=== PATIENT | female | born 1980 | race Caucasian/White ===

== ENCOUNTER 2024-12-08 00:27 | Day surgery (SDC) | payer OTHER, SELFPAY ==
[2024-11-28 15:18] VITALS: BMI 23.3
--- OUTSIDE RECORDS SUMMARY | 2024-12-08 00:32 | XMS_ITS | Data Portability ---
Author Organization [facility] Address [address] [place] [address] [place] [address] Assessment Encounter Date Assessment Date Assessment LastModified by Organization Details LastModified Time 01/13/2023 01/13/2023 Annual gynecological exam performed. Patient will come back in a year unless there are new symptoms. Not available 01/13/2023 11:51:02 10/02/2024 10/02/2024 Annual gynecological exam performed. Patient will come back in a year unless there are new symptoms. Not available 10/02/2024 11:45:32 Plan of Treatment Reminders Order Date Submit Date Provider Last Modified By Organization Details Last Modified Time Details Appointments None recorded. Lab culture, urine 2024 025 [facility] (Lab), [address], [place], [address], 5 07:39:26 urinalysis , dipstick 2024 025 [email or web address] [place], [facility] [address], [address], [place], [address], 5 12:17:20 hormone panel, serum or plasma 2024 025 [facility] (Lab), [address], [place], [address], 5 16:10:19 CBC w/ auto diff 2024 025 [facility] (Lab), [address], [place], [address], 5 16:10:18 CMP, serum or plasma 2024 025 [facility] (Lab), [address], [place], [address], 5 16:10:17 lipid panel, blood 2024 025 [facility] (Lab), [address], [place], [address], 5 16:10:17 TSH, serum or plasma 2024 025 [facility] (Lab), [address], [place], [address], 5 16:10:18 HbA1c (hemoglobi n A1c), blood 2024 025 [facility] (Lab), [address], [place], [address], 5 16:10:20 pap, IG + HR HPV - HPV regardless but if HPV is positive need subtyping 16,18/45 2024 025 [facility] (Lab), [address], [place], [address], 5 13:08:33 CMP, serum or plasma 2022 023 [facility] (Lab), [address], [place], [address], 3 03:15:45 lipid panel, blood 2022 023 [facility] (Lab), [address], [place], [address], 3 03:15:45 HbA1c (hemoglobi n A1c), blood 2022 023 [facility] (Lab), [address], [place], [address], 3 03:15:47 CBC w/ auto diff 2022 023 [facility] (Lab), [address], [place], [address], 3 03:15:46 TSH, serum or plasma 2022 023 [facility] (Lab), [address], [place], [address], 3 03:15:46 Referral None recorded. Procedures colonoscop y screening (PROC) 2024 025 [facility], [address], [address], [place], [address], 5 12:32:08 Surgeries None recorded. Imaging MAMMO, screening, digital, bilateral 2024 025 [facility], [address], [address], [place], [address], 5 04:04:05 MAMMO, screening, bilateral 2022 023 [email or web address] [facility], [address], [address], [place], [address], 3 16:36:35 Medication Orders nitrofuran toin monohydrat e/macrocry stals 100 mg capsule 2024 025 [facility] 2425, [address], [place], [address], 5 12:10:15 Diflucan 150 mg tablet 2022 023 [email or web address] [facility] 2425, [address], [place], [address], 11:52:50 nystatin-t evelinainolo ne 100,000 unit/gram- 0.1 % topical ointment 2022 023 [email or web address] [facility] 2425, [address], [place], [address], 11:52:55 Patient TargetsNo targets recorded. Patient InstructionsNo instructions recorded. Reason for Referral None Reported. Results Created Date Observation Date Name Description Value Unit Range Abnormal Flag Note LastModifiedBy Organization Detail LastModifiedTime 01/14/2001/13/2023 LIPID PANEL ,AMA (LDL- CALC) total cholesterol 191 mg/dL 0-[address] [facility] (Lab) [address], [place], [address], 01/14/2023 03:15:44 01/14/2001/13/2023 LIPID PANEL ,AMA (LDL- CALC) triglyceride s 85 mg/dL 0.00-1 50.00 NCEP Refer ence Value s for Trigl yceri radha: Mely l: <150 mg/dL Borde rline High: 150 - 199 mg/dL High: 200 - 499 mg/dL Very High: >/= 500 mg/dL Not Available [facility] (Lab) [address] [place], [address], 01/14/2023 03:15:44 01/14/2001/13/2023 LIPID PANEL ,AMA (LDL- CALC) HDL cholesterol 54 mg/dL >[address] [facility] (Lab) [address] [place], [address], 01/14/2023 03:15:44 01/14/2001/13/2023 LIPID PANEL ,AMA (LDL- CALC) LDL cholesterol 119 mg/dL 0-99 high Cutof f value s recom je d by the Natio nal Kathy stero l Educa tion Progr am: KEON ABLE: Kathy stero l <200 mg/dL LDL <100 mg/dL BORDE RLINE : Kathy stero l 200-2 39 mg/dL LDL 101-1 59 mg/dL HIGHE R RISK: Kathy stero l >240 mg/dL LDL >160 mg/dL , HDL <40 mg/dL Not Available [facility] (Lab) [address], [place], [address], 01/14/2023 03:15:44 01/14/2001/13/2023 LIPID PANEL ,AMA (LDL- CALC) non-HDL cholesterol 137 mg/dL no refere nce range A reaso nable goal for non-H DL kathy stero l is one that is 30 mg/dL highe r than the LDL kathy stero l goal. Not Available [facility] (Lab) [address], [place], [address], 01/14/2023 03:15:44 01/14/2001/13/2023 LIPID PANEL ,AMA (LDL- CALC) chol/HDL ratio 3.5 . 0.0-5. 0 On December 08, 2022, [facility] labor atori garo perez ed the equat ion for calcu latin g estim ated low-d ensit y lipop rotei n-cho leste rol (LDL- C) from the Fried manasa equat ion to the Rita sascha/Hop ebonie equat ion. This new equat ion is only valid for lipid panel s with trigl yceri radha < 400 mg/dL . Luisi es have demon strat ed that this new equat ion will impro ve the accur acy of LDL-C , espec ially in scena li when LDL-C gabriela ntrat ions are relat ively low (< 100 mg/dL ), trigl yceri radha are eleva griselda, or patie nt is non-f astin g. Refer ences : - Kennedy Galvez, Darryn Christianson , Marilin logan, Silvano Coles, Silvano moreno, [facility] , and Marin Marinelli . 2013. Comp ariso n of a Novel Metho d vs the Fried manasa Equat ion for Estim ating Low-D ensit y Lipop rotei n Kathy stero l Level s from the Stand zenon Lipid Jamarcus pham. WILDA: The Journ al of the Ameri can Medic al Assoc iatio n 310 (19): 2060- . - John enrique V, Alva J, Clyde enrique A, Gomez M, Radha e R, Flaca enrique E, Ronnie limon RS, Yves SR, Rita n SS. Fast ing Versu s Nonfa sting and Low-D ensit y Lipop rotei n Kathy stero l Accur acy. Circu latio n. 2017Aug 17;137 (1):1 0-19. Not Available [facility] (Lab) [address] [place], [address], 01/14/2023 03:15:44 01/14/20 23 01/13/2023 CMP(C OMPRE HENSI VE METAB OLIC PANEL ) sodium 139 mmol/ L 133-14 6 Not Available [facility] (Lab) [address] [place], [address], 01/14/2023 03:15:45 01/14/20 23 01/13/2023 CMP(C OMPRE HENSI VE METAB OLIC PANEL ) potassium 4.0 mmol/ L 3.5-5. 1 Not Available [facility] (Lab) [address] [place], [address], 01/14/2023 03:15:45 01/14/20 23 01/13/2023 CMP(C OMPRE HENSI VE METAB OLIC PANEL ) chloride 104 mmol/ L 98-107 Not Available [facility] (Lab) [address] [place], [address], 01/14/2023 03:15:45 01/14/20 23 01/13/2023 CMP(C OMPRE HENSI VE METAB OLIC PANEL ) carbon dioxide 27 mmol/ L 21-31 Not Available [facility] (Lab) [address] [place], [address], 01/14/2023 03:15:45 01/14/20 23 01/13/2023 CMP(C OMPRE HENSI VE METAB OLIC PANEL ) anion gap 8 mmol/ L 4-13 Not Available [facility] (Lab) [address], [place], [address], 01/14/2023 03:15:45 01/14/20 23 01/13/2023 CMP(C OMPRE HENSI VE METAB OLIC PANEL ) blood urea nitrogen 12 mg/dL 7-25 Not Available [facility] (Lab) [address], [place], [address], 01/14/2023 03:15:45 01/14/20 23 01/13/2023 CMP(C OMPRE HENSI VE METAB OLIC PANEL ) creatinine 0.99 mg/dL 0.60-1 .30 Not Available [facility] (Lab) [address], [place], [address], 01/14/2023 03:15:45 01/14/20 23 01/13/2023 CMP(C OMPRE HENSI VE METAB OLIC PANEL ) egfrcr (CKD-epi 2020) 73 mL/mi n/1.7 3_m2 >=60 Not Available [facility] (Lab) [address], [place], [address], 01/14/2023 03:15:45 01/14/20 23 01/13/2023 CMP(C OMPRE HENSI VE METAB OLIC PANEL ) calcium 9.0 mg/dL 8.3-10 .5 Not Available [facility] (Lab) [address], [place], [address], 01/14/2023 03:15:45 01/14/20 23 01/13/2023 CMP(C OMPRE HENSI VE METAB OLIC PANEL ) glucose 78 mg/dL 70-100 Not Available [facility] (Lab) [address], [place], [address], 01/14/2023 03:15:45 01/14/20 23 01/13/2023 CMP(C OMPRE HENSI VE METAB OLIC PANEL ) protein, total 6.8 g/dL 6.4-8. 3 Not Available [facility] (Lab) [address], [place], [address], 01/14/2023 03:15:45 01/14/20 23 01/13/2023 CMP(C OMPRE HENSI VE METAB OLIC PANEL ) albumin 4.1 g/dL 3.5-5. 0 Not Available [facility] (Lab) [address], [place], [address], 01/14/2023 03:15:45 01/14/20 23 01/13/2023 CMP(C OMPRE HENSI VE METAB OLIC PANEL ) ALT 12 units /L 9-43 Not Available [facility] (Lab) [address], [place], [address], 01/14/2023 03:15:45 01/14/20 23 01/13/2023 CMP(C OMPRE HENSI VE METAB OLIC PANEL ) alkaline phosphatase 55 units /L 34-104 Not Available [facility] (Lab) [address], [place], [address], 01/14/2023 03:15:45 01/14/20 23 01/13/2023 CMP(C OMPRE HENSI VE METAB OLIC PANEL ) AST 17 units /L 13-39 Not Available [facility] (Lab) [address], [place], [address], 01/14/2023 03:15:45 01/14/20 23 01/13/2023 CMP(C OMPRE HENSI VE METAB OLIC PANEL ) bilirubin, total 0.5 mg/dL 0.2-1. 2 Not Available [facility] (Lab) [address], [place], [address], 01/14/2023 03:15:45 01/14/20 23 01/13/2023 TSH, REFLE X FREE T4 TSH 1.91 uIU/m L 0.30-5 .33 Not Available [facility] (Lab) [address], [place], [address], 01/14/2023 03:15:46 01/14/20 23 01/13/2023 CBC W/DIF F WBC 7.5 10'3/ uL 3.6-10 .2 Not Available [facility] (Lab) [address], [place], [address], 01/14/2023 03:15:46 01/14/20 23 01/13/2023 CBC W/DIF F RBC 4.10 10'6/ uL (based on docume nted legal sex) 4.10-5 .30 Not Available [facility] (Lab) [address], [place], [address], 01/14/2023 03:15:46 01/14/20 23 01/13/2023 CBC W/DIF F HGB 13.3 g/dL (based on docume nted legal sex) 11.9-1 5.8 Not Available [facility] (Lab) [address], [place], [address], 01/14/2023 03:15:46 01/14/20 23 01/13/2023 CBC W/DIF F HCT 42.0 % (based on docume nted legal sex) 37.4-4 8.3 Not Available [facility] (Lab) [address], [place], [address], 01/14/2023 03:15:46 01/14/20 23 01/13/2023 CBC W/DIF F MCV 102.4 fL 82.0-9 9.0 high Not Available [facility] (Lab) [address], [place], [address], 01/14/2023 03:15:46 01/14/20 23 01/13/2023 CBC W/DIF F MCH 32.4 pg 27.0-3 3.0 Not Available [facility] (Lab) [address], [place], [address], 01/14/2023 03:15:46 01/14/20 23 01/13/2023 CBC W/DIF F MCHC 31.7 g/dL 32.0-3 6.0 low Not Available [facility] (Lab) [address], [place], [address], 01/14/2023 03:15:46 01/14/20 23 01/13/2023 CBC W/DIF F RDW 13.3 % 11.0-1 5.0 Not Available [facility] (Lab) [address], [place], [address], 01/14/2023 03:15:46 01/14/20 23 01/13/2023 CBC W/DIF F plt 258 10'3/ uL 150-45 0 Not Available [facility] (Lab) [address], [place], [address], 01/14/2023 03:15:46 01/14/20 23 01/13/2023 CBC W/DIF F MPV 11.1 fL 9.8-12 .7 Not Available [facility] (Lab) [address], [place], [address], 01/14/2023 03:15:46 01/14/20 23 01/13/2023 CBC W/DIF F NRBC's 0.0 % 0 Not Available [facility] (Lab) [address], [place], [address], 01/14/2023 03:15:46 01/14/20 23 01/13/2023 CBC W/DIF F absolute NRBCs 0.0 10'3/ uL 0 Not Available [facility] (Lab) [address], [place], [address], 01/14/2023 03:15:46 01/14/20 23 01/13/2023 CBC W/DIF F neutrophils 59.6 % 37.0-7 2.0 Not Available [facility] (Lab) [address], [place], [address], 01/14/2023 03:15:46 01/14/20 23 01/13/2023 CBC W/DIF F lymphocytes 27.7 % 16.0-4 8.0 Not Available [facility] (Lab) [address], [place], [address], 01/14/2023 03:15:46 01/14/20 23 01/13/2023 CBC W/DIF F monocytes 9.1 % 4.0-14 .0 Not Available [facility] (Lab) [address], [place], [address], 01/14/2023 03:15:46 01/14/20 23 01/13/2023 CBC W/DIF F eosinophils 2.5 % 0.0-9. 0 Not Available [facility] (Lab) [address], [place], [address], 01/14/2023 03:15:46 01/14/20 23 01/13/2023 CBC W/DIF F basophils 0.8 % 0.0-2. 0 Not Available [facility] (Lab) [address], [place], [address], 01/14/2023 03:15:46 01/14/20 23 01/13/2023 CBC W/DIF F immature granulocytes 0.3 % no define d refere nce range Not Available [facility] (Lab) [address], [place], [address], 01/14/2023 03:15:46 01/14/20 23 01/13/2023 CBC W/DIF F absolute neutrophils 4.5 10'3/ uL 1.1-6. 0 Not Available [facility] (Lab) [address], [place], [address], 01/14/2023 03:15:46 01/14/20 23 01/13/2023 CBC W/DIF F absolute lymphocytes 2.1 10'3/ uL 0.7-3. 4 Not Available [facility] (Lab) [address], [place], [address], 01/14/2023 03:15:46 01/14/20 23 01/13/2023 CBC W/DIF F absolute monocytes 0.7 10'3/ uL 0.3-1. 0 Not Available [facility] (Lab) [address], [place], [address], 01/14/2023 03:15:46 01/14/20 23 01/13/2023 CBC W/DIF F absolute eosinophils 0.2 10'3/ uL 0.0-0. 6 Not Available [facility] (Lab) [address], [place], [address], 01/14/2023 03:15:46 01/14/20 23 01/13/2023 CBC W/DIF F absolute basophils 0.1 10'3/ uL 0.0-0. 1 Not Available [facility] (Lab) [address], [place], [address], 01/14/2023 03:15:46 01/14/20 23 01/13/2023 CBC W/DIF F absolute immature granulocytes 0.0 10'3/ uL 0.00-0 .10 023 1:38 AM: P indic ates parti al resul ts on a panel have been relea sed. Addit ional resul ts will follo w. 023 1:38 AM: This resul t has been final verif ied. No addit ional or perez ed resul ts are expec griselda. Not Available [facility] (Lab) [address], [place], [address], 01/14/2023 03:15:46 01/14/20 23 01/13/2023 HEMOG LOBIN A1C hemoglobin A1C 5.1 % 0-5.6 The Ameri can Diabe paul Assoc iatio n recom mends that a prima ry goal of thera py shoul d be a HBA1C of < 7% and that physi cians shoul d reeva luate the treat ment regim en in patie nts with HBA1C value s consi stent ly > 8%. 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 Nicky davey kirstie d by Mona Hopper ret, CT on 023 at 2:29 PM ----- ----- ----- ----- ----- ----- ----- ----- ----- ----- ----- ----- ----- ----- ----- ----- ----- ---- HPV RESUL TS: HPV mRNA E6/E7 : No HPV mRNA Detec griselda NOTE: This high risk HPV mRNA assay detec ts fourt een high- risk HPV types (16, 18, 31, 33, 35, 39, 45, 51, 52, 56, 58, 59, 66, 68) witho ut diffe renti ation . COMME NT: This speci men was revie wed by a Cytot echno logis t and/o r Patho logis t (as indic ated in this repor t) after evalu ation using the Thinp rep Imagi ng Syste m. CLINI AMBER INFOR MATIO N: Menst rual Statu s: LMP (if appli cable ): Clini amber Histo ry/Pr eviou s Pap: Type of Neopl ray (if appli cable ): Signi fican t Clini amber Findi ngs: Other Histo ry: Hormo frank (if appli cable ): PAP EDUCA LIA L NOTE: The Pap Test is a scree wayne test with an inher ent false negat gabbi rate. Liqui d-bas ed sampl ing may decre ase, but will not elimi jair, false negat gabbi resul ts. A negat gabbi resul t does not precl ude the prese nce and/o r devel opmen t of disea se, since the prese nce of abnor mal cells in the sampl e depen ds on the locat ion of the lesio n and sampl ing techn ique. Shaheen nued regul ar scree wayne is the best metho d of cance r preve ntion . If repor griselda cytol ogic findi ng do not corre late with physi amber and/o r histo rical findi ngs, furth er inves tigat ion is recom je d, as clini magi warrannamaria nted. Not Available [facility] (Lab) [address], [place], [address], 01/15/2023 12:12:55 10/02/19 25 10/02/2024 CMP(C OMPRE HENSI VE METAB OLIC PANEL ) sodium 138 mmol/ L 133-14 6 Not Available [facility] (Lab) [address], [place], [address], 10/03/2024 16:10:16 10/02/19 25 10/02/2024 CMP(C OMPRE HENSI VE METAB OLIC PANEL ) potassium 4.4 mmol/ L 3.5-5. 1 Not Available [facility] (Lab) [address], [place], [address], 10/03/2024 16:10:16 10/02/19 25 10/02/2024 CMP(C OMPRE HENSI VE METAB OLIC PANEL ) chloride 104 mmol/ L 98-107 Not Available [facility] (Lab) [address], [place], [address], 10/03/2024 16:10:16 10/02/19 25 10/02/2024 CMP(C OMPRE HENSI VE METAB OLIC PANEL ) carbon dioxide 27 mmol/ L 21-31 Not Available [facility] (Lab) [address], [place], [address], 10/03/2024 16:10:16 10/02/19 25 10/02/2024 CMP(C OMPRE HENSI VE METAB OLIC PANEL ) anion gap 7 mmol/ L 4-13 Not Available [facility] (Lab) [address], [place], [address], 10/03/2024 16:10:16 10/02/19 25 10/02/2024 CMP(C OMPRE HENSI VE METAB OLIC PANEL ) blood urea nitrogen 12 mg/dL 7-25 Not Available [facility] (Lab) [address], [place], [address], 10/03/2024 16:10:16 10/02/19 25 10/02/2024 CMP(C OMPRE HENSI VE METAB OLIC PANEL ) creatinine 1.06 mg/dL 0.60-1 .30 Not Available [facility] (Lab) [address], [place], [address], 10/03/2024 16:10:16 10/02/19 25 10/02/2024 CMP(C OMPRE HENSI VE METAB OLIC PANEL ) egfrcr (CKD-epi 2020) 66 mL/mi n/1.7 3_m2 >=60 Not Available [facility] (Lab) [address], [place], [address], 10/03/2024 16:10:16 10/02/19 25 10/02/2024 CMP(C OMPRE HENSI VE METAB OLIC PANEL ) calcium 9.3 mg/dL 8.3-10 .5 Not Available [facility] (Lab) [address], [place], [address], 10/03/2024 16:10:16 10/02/19 25 10/02/2024 CMP(C OMPRE HENSI VE METAB OLIC PANEL ) glucose 83 mg/dL 70-100 Not Available [facility] (Lab) [address], [place], [address], 10/03/2024 16:10:16 10/02/19 25 10/02/2024 CMP(C OMPRE HENSI VE METAB OLIC PANEL ) protein, total 7.5 g/dL 6.4-8. 3 Not Available [facility] (Lab) [address], [place], [address], 10/03/2024 16:10:16 10/02/19 25 10/02/2024 CMP(C OMPRE HENSI VE METAB OLIC PANEL ) albumin 4.4 g/dL 3.5-5. 0 Not Available [facility] (Lab) [address], [place], [address], 10/03/2024 16:10:16 10/02/19 25 10/02/2024 CMP(C OMPRE HENSI VE METAB OLIC PANEL ) ALT 10 units /L 9-43 Not Available [facility] (Lab) [address], [place], [address], 10/03/2024 16:10:16 10/02/19 25 10/02/2024 CMP(C OMPRE HENSI VE METAB OLIC PANEL ) alkaline phosphatase 59 units /L 34-104 Not Available [facility] (Lab) [address], [place], [address], 10/03/2024 16:10:16 10/02/19 25 10/02/2024 CMP(C OMPRE HENSI VE METAB OLIC PANEL ) AST 14 units /L 13-39 Not Available [facility] (Lab) [address], [place], [address], 10/03/2024 16:10:16 10/02/19 25 10/02/2024 CMP(C OMPRE HENSI VE METAB OLIC PANEL ) bilirubin, total 0.7 mg/dL 0.2-1. 2 Not Available [facility] (Lab) [address], [place], [address], 10/03/2024 16:10:16 10/02/19 25 10/02/2024 LIPID PANEL ,AMA (LDL- CALC) total cholesterol 190 mg/dL 0-[address] [facility] (Lab) [address], [place], [address], 10/03/2024 16:10:17 10/02/19 25 10/02/2024 LIPID PANEL ,AMA (LDL- CALC) triglyceride s 80 mg/dL 0-150 NCEP Refer ence Value s for Trigl yceri radha: Mely l: <150 mg/dL Borde rline High: 150 - 199 mg/dL High: 200 - 499 mg/dL Very High: >/= 500 mg/dL Not Available [facility] (Lab) [address], [place], [address], 10/03/2024 16:10:17 10/02/19 25 10/02/2024 LIPID PANEL ,AMA (LDL- CALC) HDL cholesterol 57 mg/dL >[address] [facility] (Lab) [address] [place], [address], 10/03/2024 16:10:17 10/02/19 25 10/02/2024 LIPID PANEL ,AMA (LDL- CALC) LDL cholesterol 116 mg/dL 0-99 high Cutof f value s recom je d by the Natio nal Kathy stero l Educa tion Progr am: KEON ABLE: Kathy stero l <200 mg/dL LDL <100 mg/dL BORDE RLINE : Kathy stero l 200-2 39 mg/dL LDL 101-1 59 mg/dL HIGHE R RISK: Kathy stero l >240 mg/dL LDL >160 mg/dL , HDL <40 mg/dL Not Available [facility] (Lab) [address], [place], [address], 10/03/2024 16:10:17 10/02/1910/02/2024 LIPID PANEL ,AMA (LDL- CALC) non-HDL cholesterol 133 mg/dL no refere nce range A reaso nable goal for non-H DL kathy stero l is one that is 30 mg/dL highe r than the LDL kathy stero l goal. Not Available [facility] (Lab) [address], [place], [address], 10/03/2024 16:10:17 10/02/19 25 10/02/2024 LIPID PANEL ,AMA (LDL- CALC) chol/HDL ratio 3.3 . 0.0-5. 0 On December 08, 2022, [facility] labor atori garo perez ed the equat ion for calcu latin g estim ated low-d ensit y lipop rotei n-cho leste rol (LDL- C) from the Farzana hairald equat ion to the Rita caicedo/Alivia loomis equat ion. This new equat ion is only valid for lipid panel s with trigl yceri radha < 400 mg/dL . Studi es have demon strat ed that this new equat ion will impro ve the accur acy of LDL-C , espec ially in scena li when LDL-C gabriela ntrat ions are relat ively low (< 100 mg/dL ), trigl yceri radha are eleva griselda, or patie nt is non-f astin g. Refer ences : - Kennedy Galvez, Darryn Christianson , Marilin logan, Silvano Coles, Silvano moreno, Kevan limon , and Marin Marinelli . 2013. Comp ariso n of a Novel Metho d vs the Fried manasa Equat ion for Estim ating Low-D ensit y Lipop rotei n Kathy stero l Level s from the Stand zenon Lipid Profcherrie le. WILDA: The Journ al of the Ameri can Medic al Assoc iatio n 310 (19): 2060- . - John pickens ar V, Alva J, Clyde ar A, Gomez M, Radha e R, Flaca ar E, Ronnie limon RS, Yves SR, Rita caicedo SS. Fast ing Versu s Nonfa sting and Low-D ensit y Lipop rotei n Kathy stero l Accur acy. Circu latio n. 2017Aug 17;137 (1):1 0-19. Not Available [facility] (Lab) [address], [place], [address], 10/03/2024 16:10:17 10/02/19 25 10/02/2024 TSH, REFLE X FREE T4 TSH 2.69 uIU/m L 0.30-5 .33 Not Available [facility] (Lab) [address], [place], [address], 10/03/2024 16:10:18 10/02/19 25 10/02/2024 CBC W/DIF F WBC 6.7 10'3/ uL 3.5-10 .5 Not Available [facility] (Lab) [address], [place], [address], 10/03/2024 16:10:18 10/02/19 25 10/02/2024 CBC W/DIF F RBC 4.42 10'6/ uL (based on docume nted legal sex) 3.80-5 .20 Not Available [facility] (Lab) [address], [place], [address], 10/03/2024 16:10:18 10/02/19 25 10/02/2024 CBC W/DIF F HGB 14.2 g/dL (based on docume nted legal sex) 11.6-1 5.4 Not Available [facility] (Lab) [address], [place], [address], 10/03/2024 16:10:18 10/02/19 25 10/02/2024 CBC W/DIF F HCT 44.0 % (based on docume nted legal sex) 34.0-4 5.0 Not Available [facility] (Lab) [address], [place], [address], 10/03/2024 16:10:18 10/02/19 25 10/02/2024 CBC W/DIF F MCV 99.5 fL 80.0-9 9.0 high Not Available [facility] (Lab) [address], [place], [address], 10/03/2024 16:10:18 10/02/19 25 10/02/2024 CBC W/DIF F MCH 32.1 pg 27.0-3 4.0 Not Available [facility] (Lab) [address], [place], [address], 10/03/2024 16:10:18 10/02/19 25 10/02/2024 CBC W/DIF F MCHC 32.3 g/dL 32.0-3 5.5 Not Available [facility] (Lab) [address], [place], [address], 10/03/2024 16:10:18 10/02/19 25 10/02/2024 CBC W/DIF F RDW 12.1 % 11.0-1 5.0 Not Available [facility] (Lab) [address], [place], [address], 10/03/2024 16:10:18 10/02/19 25 10/02/2024 CBC W/DIF F plt 283 10'3/ uL 150-40 0 Not Available [facility] (Lab) [address], [place], [address], 10/03/2024 16:10:18 10/02/19 25 10/02/2024 CBC W/DIF F MPV 11.1 fL 8.8-12 .1 Not Available [facility] (Lab) [address], [place], [address], 10/03/2024 16:10:18 10/02/19 25 10/02/2024 CBC W/DIF F neutrophils 57.1 % 34.0-7 3.0 Not Available [facility] (Lab) [address], [place], [address], 10/03/2024 16:10:18 10/02/19 25 10/02/2024 CBC W/DIF F lymphocytes 28.6 % 15.0-5 0.0 Not Available [facility] (Lab) [address], [place], [address], 10/03/2024 16:10:18 10/02/19 25 10/02/2024 CBC W/DIF F monocytes 9.9 % 1.0-15 .0 Not Available [facility] (Lab) [address], [place], [address], 10/03/2024 16:10:18 10/02/19 25 10/02/2024 CBC W/DIF F eosinophils 3.3 % 0.0-8. 0 Not Available [facility] (Lab) [address], [place], [address], 10/03/2024 16:10:18 10/02/19 25 10/02/2024 CBC W/DIF F basophils 0.9 % 0.0-2. 0 Not Available [facility] (Lab) [address], [place], [address], 10/03/2024 16:10:18 10/02/19 25 10/02/2024 CBC W/DIF F immature granulocytes 0.2 % no define d refere nce range Immat ure Granu locyt es (IG) repre sents autom ated enume ratio n of Metam yeloc ytes, Myelo cytes and Promy elocy paul when IG is < 5%. Blast s are not inclu ded in IG and repor griselda separ ately if prese nt. Not Available [facility] (Lab) [address], [place], [address], 10/03/2024 16:10:18 10/02/19 25 10/02/2024 CBC W/DIF F absolute neutrophils 3.8 10'3/ uL 1.5-8. 0 Not Available [facility] (Lab) [address], [place], [address], 10/03/2024 16:10:18 10/02/19 25 10/02/2024 CBC W/DIF F absolute lymphocytes 1.9 10'3/ uL 1.0-4. 0 Not Available [facility] (Lab) [address], [place], [address], 10/03/2024 16:10:18 10/02/19 25 10/02/2024 CBC W/DIF F absolute monocytes 0.7 10'3/ uL 0.2-1. 0 Not Available [facility] (Lab) [address], [place], [address], 10/03/2024 16:10:18 10/02/19 25 10/02/2024 CBC W/DIF F absolute eosinophils 0.2 10'3/ uL 0.0-0. 6 Not Available [facility] (Lab) [address], [place], [address], 10/03/2024 16:10:18 10/02/19 25 10/02/2024 CBC W/DIF F absolute basophils 0.1 10'3/ uL 0.0-0. 3 Not Available [facility] (Lab) [address] [place], [address], 10/03/2024 16:10:18 02/17/10/02/2024 CBC W/DIF F absolute immature granulocytes 0.0 10'3/ uL 0.00-0 .10 Refer ence range s for nonbi nary/ inter sex or unspe cifie d gende r patie nts have not been estab lishe d. Pleas e refer to the follo wing table for range s estab lishe d for cisge nder patie nts and evalu ate in the clini amber riya xt of the indiv idual patie nt: https :[email or web address] ugalde book. nm.or g/gen derx Not Available [facility] (Lab) [address], [place], [address], 10/03/2024 16:10:18 10/02/19 25 10/02/2024 FSH, LH, ESTRA DIOL estradiol 89.6 pg/mL This assay was perfo rmed using [employer] ratio n reage nts and test kits. Value s obtai laverne with other assay metho ds or kits canno t be used inter [facility] . Femal e Estra diol Range s: Folli cular phase 12.4- 233 pg/mL Ovula tion phase 41.0- 398 pg/mL Lutea l phase 22.3- 341 pg/mL Postm enopa usal <5-13 8 pg/mL Healt hy Pregn ant Women 1st Trime ster 154-3 243 pg/mL 2nd Trime ster 1561- 82086 pg/mL 3rd Trime ster 8525- >3000 0 pg/mL Not Available [facility] (Lab) [address], [place], [address], 10/03/2024 16:10:19 10/02/19 25 10/02/2024 FSH, LH, ESTRA DIOL FSH 4.7 mIU/m L This assay was perfo rmed using [employer] n reage nts and test kits. Value s obtai laverne with other assay metho ds or kits canno t be used inter perez eably . Femal es Folli cular : 3.5-1 2.5 mIU/m L Ovula tion: 4.7-2 1.5 mIU/m L Lutea l: 1.7-7 .7 mIU/m L Postm enopa use: 25.8- 134.8 mIU/m L Not Available [facility] (Lab) [address] , [place], [address], 10/03/2024 16:10:19 10/02/19 25 10/02/2024 FSH, LH, ESTRA DIOL LH 1.5 mIU/m L This assay was perfo rmed using [employer] n reage nts and test kits. Value s obtai laverne with other assay metho ds or kits canno t be used inter perez eably . Femal es Mid-F ollic ular: 2.4-1 2.6 mIU/m L Mid-C ycle: 14.0- 95.6 mIU/m L Mid-L uteal : 1.0-1 1.4 mIU/m L Postm enopa use: 7.7-5 8.5 mIU/m L Not Available [facility] (Lab) [address], [place], [address], 10/03/2024 16:10:19 10/02/19 25 10/02/2024 HEMOG LOBIN A1C hemoglobin A1C 5.0 % 4.0-5. 6 The Ameri can Diabe paul Assoc iatio n recom mends that a prima ry goal of thera py kisha d be a HBA1C of < 7% and that physi cians shoul d reeva luate the treat ment regim en in patie nts with HBA1C value s consi stent ly > 8%. 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 Elect keshav thacker d by Cristin yin, CT on 2024 at 1203 [employer]HOU[employer] ----- ----- ----- ----- ----- ----- ----- ----- ----- ----- ----- ----- ----- ----- ----- ----- ----- ---- HPV RESUL TS: HPV mRNA E6/E7 : No HPV mRNA Detec griselda NOTE: This high risk HPV mRNA assay detec ts fourt een high- risk HPV types (16, 18, 31, 33, 35, 39, 45, 51, 52, 56, 58, 59, 66, 68) witho ut diffe renti ation . COMME NT: This speci men was revie wed by a Cytot echno logis t and/o r Patho logis t (as indic ated in this repor t) after evalu ation using the Thinp rep Imagi ng Syste m. CLINI AMBER INFOR MATIO N: Menst rual Statu s: LMP (if appli cable ): 2024 Clini amber Histo ry/Pr eviou s Pap: Type of Neopl ray (if appli cable ): Signi fican t Clini amber Findi ngs: Other Histo ry: Hormo frank (if appli cable ): PAP EDUCA LIA L NOTE: The Pap Test is a scree wayne test with an inher ent false negat gabbi rate. Liqui d-bas ed sampl ing may decre ase, but will not elimi jair, false negat gabbi resul ts. A negat gabbi resul t does not precl ude the prese nce and/o r devel opmen t of disea se, since the prese nce of abnor mal cells in the sampl e depen ds on the locat ion of the lesio n and sampl ing techn ique. Shaheen nued regul ar scree wayne is the best metho d of cance r preve ntion . If repor griselda cytol ogic findi ng do not corre late with physi amber and/o r histo rical findi ngs, furth er inves tigat ion is recom je d, as clini magi marrero nted. Not Available [facility] (Lab) [address], [place], [address], 10/04/2024 13:08:33 10/18/19 25 10/17/2024 CULTU RE: URINE result report SEE RESULT S BELOW Test: Cultu re: Urine Speci men Sourc e: Urine - Clean Catch Speci men Type: Urine Speci men Date: 1118 Resul t Date: 0633 Resul t Statu s: Final resul t Abnor mal: No Resul ting Lab: [facility] [address] [facility] [address] Tel: CULTU RE ----- ----- ----- --- No growt h in 1 day (dete ction level of 10,00 0 colon ies / ml.) Not Available [facility] (Lab) [address], [place], [address], 10/19/2024 07:39:26 10/18/19 25 10/17/2024 urina lysis , dipst ick Leukocytes ++ Not Available [facility] [address], [place], [address], 10/17/2024 12:06:54 10/18/19 25 10/17/2024 urina lysis , dipst ick Nitrite - Not Available [facility] [address], [place], [address], 10/17/2024 12:06:54 10/18/19 25 10/17/2024 urina lysis , dipst ick Urobilinogen - Not Available [facility] [address], [place], [address], 10/17/2024 12:06:54 10/18/19 25 10/17/2024 urina lysis , dipst ick Protein trace Not Available [facility] [address], [place], [address], 10/17/2024 12:06:54 10/18/19 25 10/17/2024 urina lysis , dipst ick pH 6 Not Available [facility] [address], [place], [address], 10/17/2024 12:06:54 10/18/19 25 10/17/2024 urina lysis , dipst ick Blood +++ Not Available [facility] [address], [place], [address], 10/17/2024 12:06:54 10/18/19 25 10/17/2024 urina lysis , dipst ick Specific [place] 1.000 [facility] Available [facility] [address], [place], [address], 10/17/2024 12:06:54 10/18/19 25 10/17/2024 urina lysis , dipst ick Ketone - Not Available [facility] [address], [place], [address], 10/17/2024 12:06:54 10/18/19 25 10/17/2024 urina lysis , dipst ick Bilirubin - Not Available [facility] [address], [place], [address], 10/17/2024 12:06:54 10/18/19 25 10/17/2024 urina lysis , dipst ick Glucose - Not Available [facility] [address], [place], [address], 10/17/2024 12:06:54 10/18/19 25 10/17/2024 urina lysis , dipst ick Appearance clear [facility] Available [facility] [address], [place], [address], 10/17/2024 12:06:54 10/18/1910/17/2024 urina lysis , dipst ick Color light yellow Not Available [facility] [address], [place], [address], 10/17/2024 12:06:54 Result Notes None recorded. Procedures Surgical History Date Name Laterality Status Provider Name and Address Organization Details Recorded Time 3 Date of Last Pap Smear completed Lauren Higginbotham [facility] 10/02/2024 11:44:49 2 Orthopedic Surgery completed Shae Gross [facility] 01/13/2023 11:54:15 Imaging Results None recorded. Procedure Notes None recorded. Medical Equipment None Reported. Allergies No known drug allergies Medications Name Sig Start Date Stop Date Status Note LastModified by Organization Details LastModified Time fluoxetine 40 mg capsule TAKE 1 CAPSULE BY MOUTH ONCE DAILY 01/13 completed Not Available Not Available Not Available fluconazole 150 mg tablet TAKE 1 TABLET ON DAYS 1, 4, AND 7 EVERY WEEK FOR 4 WEEKS 10/02 completed Not Available Not Available Not Available clonazepam 0.5 mg tablet TAKE 1 TABLET BY MOUTH ONCE DAILY NEEDED FOR ANXIETY 10/17 completed Not Available Not Available Not Available nystatin-tr iamcinolone 100,000 unit/gram-0 .1 % topical ointment APPLY OINTMENT TOPICALLY TO AFFECTED AREA TWICE DAILY NEEDED 10/02 completed Not Available Not Available Not Available oseltamivir 75 mg capsule TAKE 1 CAPSULE BY MOUTH TWICE A DAY FOR 5 DAYS 01/13 completed Not Available Not Available Not Available fluoxetine 10 mg capsule 01/13 completed Not Available Not Available Not Available fluoxetine 20 mg capsule TAKE 1 CAPSULE BY MOUTH ONCE DAILY 10/17 completed Not Available Not Available Not Available nitrofurant oin monohydrate /macrocryst als 100 mg capsule Take 1 capsule every 12 hours by oral route for 7 days. active Not Available Not Available No t Available Vitals Date Recorded Body height Body mass index (BMI) Body weight Systolic blood pressure Diastolic blood pressure Provider Name and Address Organization Details Last Updated DateTime 01/13/2023 160.02 cm 23 kg/m2 51678.01 g 107 mm[Hg] 69 mm[Hg] Shae Gross [facility] 3 11:51:33 Date Recorded Body height Body mass index (BMI) Body weight Systolic blood pressure Diastolic blood pressure Provider Name and Address Organization Details Last Updated DateTime 10/02/2024 160.02 cm 22.9 kg/m2 53723.85 g 106 mm[Hg] 72 mm[Hg] [facility] 5 11:52:45 Date Recorded Body height Body mass index (BMI) Body weight Systolic blood pressure Diastolic blood pressure Provider Name and Address Organization Details Last Updated DateTime 10/17/2024 160.02 cm 23.2 kg/m2 08043.32 g 101 mm[Hg] 70 mm[Hg] [facility] 5 11:58:48 Social History Question Answer Notes LastModified by Organizat ion Details LastModified Time Tobacco Smoking Status Never Smoker Shae Gross [facility] 01/13/2023 11:54:06 Do You Have An Advance Directive? No [email or web address] Information not available 10/02/2024 What Is Your Level Of Alcohol Consumption? Occasional Information not available 01/13/2023 How Many Years Have You Consumed Alcohol? 24 [email or web address] Information not available 10/02/2024 Are You Blind Or Do You Have Difficulty Seeing? No Information not available 01/13/2023 What Is Your Level Of Caffeine Consumption? Moderate Information not available 10/02/2024 How Much Tobacco Do You Chew? None Information not available 01/13/2023 In The 14 Days Before Symptom Onset, Have You Had Close Contact With A Laboratory-confir med COVID-19 While That Case Was Ill? No Information not available 01/13/2023 In The 14 Days Before Symptom Onset, Have You Had Close Contact With A Person Who Is Under Investigation For COVID-19 While That Person Was Ill? No Information not available 01/13/2023 Have You Been To An Area Known To Be High Risk For COVID-19? No Information not available 01/13/2023 Are You Deaf Or Do You Have Serious Difficulty Hearing? No Information not available 01/13/2023 What Type Of Diet Are You Following? REGULAR Information not available 01/13/2023 What Is The Highest Grade Or Level Of School You Have Completed Or The Highest Degree You Have Received? 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 No Information not available 01/13/2023 Do You Use Protection During Sex? No Information not available 01/13/2023 Do You Use Your Seat Belt Or Car Seat Routinely? Yes Information not available 01/13/2023 Do You Have Smoke And Carbon Monoxide Detectors In Your Home? Yes Information not available 01/13/2023 How Much Tobacco Do You Smoke? No Information not available 01/13/2023 Do You Feel Stressed (tense, Restless, Nervous, Or Anxious, Or Unable To Sleep At Night)? [id number] Information not available 01/13/2023 Do You Use Any Illicit Or Recreational Drugs? No Information not available 01/13/2023 Do You Use Sunscreen Routinely? Yes Information not available 01/13/2023 Have You Used IV Drugs? No Information not available 01/13/2023 Sex: Unknown Functional Status Question Answer Note LastModified by Organizat ion Details LastModified Time Are you able to walk? [email or web address] Information not available 01/13/2023 What is your exercise level? Occasional [email or web address] Information not available 10/02/2024 Mental Status None recorded. Family History Relationship Description Onset Age of this Age Resolved Age Notes LastModified by Organization Details LastModified Time Unspecified Relation Family history unknown Not available 2022 11:51:39 Medical History Condition Response Allergies (Food, seasonal, environmental ) N Other N Drug/Latex Allergies/Reactions N Breast Cancer N Blood Transfusion N Dermatologic Disorders N Lung Disease N Defects or Inherited Disease N Breast Problem N Gestational Diabetes N Hematologic disorders N Anesthesia Complications N History of STI N Deep Vein Thrombosis N Polycystic ovary syndrome N Anxiety Disorder N Autoimmune disease N Arthritis N Infertility N Polyps N Acid Reflux (GERD) N History of abnormal pap N Cancer N Stroke N Varicosities N Neurologic/Epilepsy N Endometriosis N High Cholesterol N Fibromyalgia N Headaches N Kidney Disease N Heart Problems N Thyroid Problems N Kidney or Bladder Problems N GI Problems N Eating Disorder N Anemia N Art (IVF or FET) N Psychiatric Illness N Ovarian Cancer N Diabetes N Pulmonary (TB, Asthma) N Hepatitis/Liver Disease N No Past Medical History Y Eczema N Urinary Tract Infection N Abuse/Domestic Violence N Asthma N Trauma/Violence N Depression/ depression N Heart Disease N Pre-Eclampsia N Hypertension N Osteoporosis N Thrombophilias N Gynecological History Statement/Question Response Abnormal Pap N Flow Moderate Date of LMP 10/10/2024 On BCP's at Conception? N N Was last menstrual period normal Y STIs/STDs N HPV Vaccine N Duration of Flow (days) 5 Current Control Method None Age at First Child 16 Are cycles usually normal Y Frequency of Cycle (Q days) 30 Sexually Active? Y Menses Monthly Y Age of first menstrual cycle 9 Date of Last Pap Smear 01/13/2023 Sexual Problems? N Desired Control Method Ablation LMP Definite N Obstetrics History GPAL:G 2 P 2 0 0 2 Type Value Full Term 2 Living 2 Total 2 Past Encounters Encounter ID Performer Location Encounter Start Date Encounter Closed Date Diagnosis/Indication Diagnosis SNOMED-CT Code Diagnosis ICD10 Code Diagnosis Note [id number] Viky Moreno , [facility] [address] [address] 01/13/2023 11:42:20 01/13/2023 16:36:35 Gynecologic examination 12557549 Z01.419 Suggested Calcium with Vitamin D 1200-1500m g daily. Patient advised to get an annual flu shot in the fall and she could obtain at [facility] or [facility] care clinic. Also to obtain TDap vaccinatio n if you have not had one in the last 10 years. Recommend yearly mammograms . Encouraged monthly self breast exams. Encourage safe sexual practices, to use condoms and limit partners if not already in a monogamous relationsh ip. Engage in daily exercise of low impact aerobic exercise 45-60 minutes 4-5 times weekly. Avoid tobacco and illicit drugs as well as using moderation with alcohol intake less than 1-2 8 oz beverages daily. This lifestyle behavior pattern will lead to less health conditions and longer life span. If BMI greater than 25 weight watchers or dietary consult advised. All questions have been answered. Patient appears to understand informatio n, but if you have any questions please call or respond to this email.Pap/ hpv sentSTD Screen declinedGe netic Screen discussedC olon Screen naDexa Screen naRoutine Labs ordered. Will refer to PCP if any abn's that need to be addressed on routine blood wrk. Adult heal th examination [id number] Z00.00 Screening mammography 24 144751 Z12.31 Vaginitis 23325518 N76.0 Today we decided to do an extended course of diflucan and VCG's.If still having issues return to office. Counseled on medication R/B's, Most common side effects, & use. All questions were answered to patient satisfacti on. Contracept ion care management [id number] Z30.9 Discussed all control options and pt would like to consider Paraguard IUD. I have discussed in detail all risks and benefits including risk of infection and perforatio n. She understand s she will need to contact office with next menses for placement. Aware of need to verify with insurance device coverage. Literature given. All questions answered to patient satisfacti on.She would also like to consider tubal ligation. Understand s this option would require an MD consult. [id number] MEGAN JONES NP [facility] [address],[facility] [place] [address] 10/02/2024 11:38:55 10/02/2024 12:18:50 Gynecologic examination [id number] Z01.419 Annual gynecologi amber exam performed. Patient will come back in a year unless there are new symptoms. Suggest Calcium with Vitamin D if not eating in diet. Patient advised to get annual flu shot. Recommend yearly physicals and perform monthly breast exams. Genetic testing is available for patients with family history of cancer. Engage in safe sexual practices, use condoms. Encouraged to have daily exercise. Avoid tobacco and illicit drugs, moderation of alcohol. If BMI greater than 25 dietary consult advised. If you have any questions please call or email. mammogram- DUE; order given, pt to schedule colon cancer screening - DUE; GI referral for colonoscop y DEXA scan- n/a Pap smear- pap w/ HPV collected laboratory evaluation - requested STI testing - declined Recommende d consistent condom use to prevent . Discussed other methods of control - pt declined. Pt does not have PCP - PCP list given Screening mammography 24 624426 Z12.31 Menopausal symptom 91677 002 N95.1 Reviewed self-help strategies (dietary changes/ex ercise/acc upuncture/ etc.), herbal and other OTC therapies, hormonal options as well as other medication s used to treat common menopausal symptoms. Discussed hormonal vs non-hormon al methods to treat vasomotor symptoms. Pt declined at this time.Will check labs. Screening for malignant neoplasm of colon [id number] Z12.11 [id number] MEGAN JONES NP [facility] [address] [address] 10/17/2024 11:40:40 10/17/2024 12:24:17 Urinary symptoms 304255896 R39.9 Patient presents with symptoms of UTI. Results of dipstick were positive for +++ blood, ++ leukocytes , and trace protein.Ur ine culture sent.Advis ed to drink clear fluids, Tylenol for pain and take prescribed medication s as instructed .Patient encouraged to follow up within 1 week if not improving. Health Concerns Section Related Observation LastModified by Organization Detai ls LastModified Time None Recorded Concern Status LastModified by Organization Details LastModified Time None Recorded Advance Directives Directive N: Payers Encounter Date Sequence Insurance Name Policy Number Policy Kang Covered Member ID Kang Member ID Guarantor Name 01/13/2023 1 [employer]: (PPO) [id number] Samantha December [id number] Samantha 10/02/2024 1 [facility] [id number] Samantha December [id number] Samantha 10/17/2024 [facility] [id number] Samantha December [id number] Samantha December Notes Date Note Type Note Provider Name and Address Organization Details Recorded Time 01/13/2023 text/html Annual GYNReport ed bypatient.Menstrual cycle:Normal menses Urinary symptoms:No hematuria; No incontinence Vulva:No genital lesion Vagina:White;Vagina l itching(Feels she has had a low lying yeast infection that otc products have not fully resolved from previously being treated with multiple abx for walking pnuemonia from covid and ear infections.) Breast:No breast pain; No breast lump; No nipple discharge Current Contraception:Satis fied with current contraception (Wants to discuss non-hormonal BC options.); Condoms Sexual complaints:No sexual complaints; No pain during intercourse; Normal libido Menopausal Symptoms:No menopausal symptoms; Normal vaginal lubrication Psychological symptoms:No depression; No anxiety; No PMDD Preventive measures:Encourage self breast examination; Encourage regular exercise; Encourage no tobacco use; Encourage regular mammograms starting age 40; Followed with yearly pap smears; Needs to schedule mammogram Viky Moreno, MCKENZIE- [address], [place], [address], [facility] 01/13/2023 16:16:14 10/02/2024 text/html Annual GYNReport ed bypatient.Menstrual cycle:Irregular cycle intervals;Perimenop ausal Urinary symptoms:No hematuria; No incontinence Vulva:No genital lesion Vagina:Normal vaginal discharge Breast:No breast pain; No breast lump; No nipple discharge Current Contraception:Condo ms Sexual complaints:No sexual complaints; No pain during intercourse; Normal libido Menopausal Symptoms:No menopausal symptoms; Normal vaginal lubrication Psychological symptoms:No depression; No anxiety; No PMDD Preventive measures:Encourage self breast examination; Encourage regular exercise; Encourage no tobacco use; Encourage regular mammograms starting age 40 Patient presents for annual well woman exam. Patient reports occasional night sweats and states that her periods have become slightly more irregular, q35-45 days. Requests annual blood work and hormone labs. MEGAN JONES NP [address], [place], [address], [facility] 10/02/2024 12:18:10 10/17/2024 text/html Patient here wit h c/o urethral pressure, pelvic discomfort, dark urine, urinary frequency, urine odor, hesitancy, and blood in urine x 2 days.Neg flank pain, fever.Neg GI symptoms. MEGAN JONES NP [address], [place], [address], [facility] 10/17/2024 12:18:42 OBGyn Episode Ob Episode Information Episode Created Date Number of Fetuses Patient Bloodtype Patient rh Status Prepregnancy Weight lbs Domestic Partner Domestic Partner Phone Father Name Paper Machine Tender Status 01/14/20 23 1 CLOSED Fetus Data First Name Last Name Admitted to NICU Weight (g) Sex Living Outcome Pediatric Complications Fetus ID Race Codes Race Delivery Type M Full Term Vaginal Delivery Jose Manuel Calculation Initial Jose Manuel Date Initial Exam Date Initial Exam Provider Initial Ultrasound Date Last Menstrual Period Date Ultra Sound Weeks Gestation 0 Eighteen To Twenty Week Jose Manuel Update Ultra Sound Date Fundal Height At Umbil Quickening Date Ultra Sound Latest Weeks Gestation Final Jose Manuel Confirmed By Final Jose Manuel Confirmed Date Final Jose Manuel Date Ultra Sound Latest Days Gestation 0 0 Menstrual History Last Menstrual Date Menses Monthly On Bcp Conception Prior Menses Frequency Hcg Plus Date Menarche Onset Age Delivery Information Delivery Date Delivery Type Labor Anesthesia Weeks Gestation Incision Type Labor Labor Length Hrs Delivered By Post Complications Tubal Sterilization Discharge Date Comments 7 40 Robert Discharge Information Feeding Method Contraceptive Method Maternal HG B and HCT Levels Ob Episode Information Episode Created Date Number of Fetuses Patient Bloodtype Patient rh Status Prepregnancy Weight lbs Domestic Partner Domestic Partner Phone Father Name Paper Machine Tender Status 01/14/20 23 1 CLOSED Fetus Data First Name Last Name Admitted to NICU Weight (g) Sex Living Outcome Pediatric Complications Fetus ID Race Codes Race Delivery Type F Full Term Vaginal Delivery Jose Manuel Calculation Initial Jose Manuel Date Initial Exam Date Initial Exam Provider Initial Ultrasound Date Last Menstrual Period Date Ultra Sound Weeks Gestation 0 Eighteen To Twenty Week Jose Manuel Update Ultra Sound Date Fundal Height At Umbil Quickening Date Ultra Sound Latest Weeks Gestation Final Jose Manuel Confirmed By Final Jose Manuel Confirmed Date Final Jose Manuel Date Ultra Sound Latest Days Gestation 0 0 Menstrual History Last Menstrual Date Menses Monthly On Bcp Conception Prior Menses Frequency Hcg Plus Date Menarche Onset Age Delivery Information Delivery Date Delivery Type Labor Anesthesia Weeks Gestation Incision Type Labor Labor Length Hrs Delivered By Post Complications Tubal Sterilization Discharge Date Comments 1 40 Hong Discharge Information Feeding Method Contraceptive Method Maternal HG B and HCT Levels
--- OUTSIDE RECORDS SUMMARY | 2024-12-08 00:33 | XMS_ITS | Referral Summary ---
Author Organization [facility] Medical Office Building 1 Address [address] [place] [address] Care Team Providers Care User Experience Lead Name Role Phone Denton Leonardo MD Primary Care Provider Encounters Date Type Department Care Team Description 10/13/2024 1:30 PM LABORER CARPENTRY DOCK - 10/13/2024 11:59 PM LABORER CARPENTRY DOCK Hospital Encounter [address] [place] [address] Right foot pain Discharge Disposition: Discharge to home or self care 10/13/2024 1:30 PM LABORER CARPENTRY DOCK Office Visit [facility] Orthopaedic Surgery [address] [place] [address] Medical Office Building 1 [address] [place] [address] Gasper Victoria, MCKENZIE Right foot pain (Primary Dx); Left foot pain from Last 3 Months Allergies No known active allergies Medications No known medications Active Problems No known active problems Social History Tobacco Use Types Packs/Day Years Used Date Smoking Tobacco: Unknown Tobacco Cessation:Counseling Given: Not Answered Comments Unknown Sex and Gender Information Value Date Recorded Sex Assigned at Not on file Legal Sex Female 6:30 PM LABORER CARPENTRY DOCK Gender Identity Not on file Sexual Orientation Not on file Plan of Treatment Not on file Procedures Procedure Name Priority Date/Time Associated Diagnosis Comments XR FOOT RIGHT 3 OR MORE VIEWS Schedule Routine, Read Routine (OP Routine) 10/13/2024 1:36 PM LABORER CARPENTRY DOCK Right foot pain from Last 3 Months Results * XR Foot Right 3 or More Views (10/13/2024 1:36 PM LABORER CARPENTRY DOCK) Anatomical Region Laterality Modality Lower Extremities, Foot Right Digital Radiography 10/14/2024 9:01 AM LABORER CARPENTRY DOCK Impressions 10/14/2024 9:01 AM LABORER CARPENTRY DOCK 1. Small bony density adjacent to the lateral/plantar cuboid, favored to represent an os perineum, with small avulsion injury not excluded. Correlate clinically. This report was created using voice recognition software. Occasional wrong-word or sound-alike substitutions may have occurred due to the inherent limitations of voice recognition software. Read the above report carefully and recognize, using context, where substitutions may have occurred. Electronically signed by: Muna Segovia M.D. Narrative 10/14/2024 9:01 AM LABORER CARPENTRY DOCK EXAMINATION: XR FOOT RIGHT 3 OR MORE VIEWS DATE: 10/13/2024 1:45 PM HISTORY: right foot pain - WB. COMPARISON: None. FINDINGS: Small, roughly wedge-shaped ossific density adjacent to the lateral cuboid tarsal on the oblique view, probably an os peroneum, but cortication not well assessed so small avulsion not excluded; correlation for recent injury or pain in this area is recommended. Mild hallux valgus with bony bunion. Bony alignment otherwise normal. Joint spaces are well preserved. No erosions. No focal soft tissue swelling. Procedure Note Muna Segovia MD - 10/14/2024 EXAMINATION: XR FOOT RIGHT 3 OR MORE VIEWS DATE: 10/13/2024 1:45 PM HISTORY: right foot pain - WB. COMPARISON: None. FINDINGS: Small, roughly wedge-shaped ossific density adjacent to the lateral cuboid tarsal on the oblique view, probably an os peroneum, but cortication not well assessed so small avulsion not excluded; correlation for recent injury or pain in this area is recommended. Mild hallux valgus with bony bunion. Bony alignment otherwise normal. Joint spaces are well preserved. No erosions. No focal soft tissue swelling. IMPRESSION: 1. Small bony density adjacent to the lateral/plantar cuboid, favored to represent an os perineum, with small avulsion injury not excluded. Correlate clinically. This report was created using voice recognition software. Occasional wrong-word or sound-alike substitutions may have occurred due to the inherent limitations of voice recognition software. Read the above report carefully and recognize, using context, where substitutions may have occurred. Electronically signed by: Muna Segovia M.D. Gasper Victoria SENIOR INVESTMENT ANALYST IMG XR PROCEDURES Final Re sult from Last 3 Months Insurance NEXUS NEXUS Care Teams User Experience Lead Relationship Specialty Start Date End Date Denton Leonardo MD [address] [place] [id number] PCP - General Surgery 11/07/21
--- OUTSIDE RECORDS SUMMARY | 2024-12-08 00:33 | XMS_ITS | Data Portability ---
Author Organization [facility] Address [address] [place] [address] Assessment No assessment recorded. Plan of Treatment Reminders Order Date Submit Date Provider Last Modified By Organization Details Last Modified Time Details Appointments None record ed. Lab None record ed. Referral None record ed. Procedures None record ed. Surgeries None record ed. Imaging None record ed. Medication Orders None record ed. Patient TargetsNo targets recorded. Patient InstructionsNo instructions recorded. Reason for Referral None Reported. Problems No Known Problems Procedures Surgical History Date Name Laterality Status Provider Name and Address Organization Details Recorded Time 04/06/20 17 97734- Corticosteroid injection for Neuroma completed Margaret [facility] 04/06/2017 11:54:59 04/06/20 17 66673 X-rays 3v Feet Normal completed Margaret [facility] 04/06/2017 11:54:45 Other completed Asha Queen [facility] 04/06/2017 11:42:39 Imaging Results None recorded. Procedure Notes None recorded. Medical Equipment None Reported. Allergies Allergen ID Allergen Name Allergen Category Reaction Reaction Severity Criticality Documentation Date Start Date Code Code System Note Provider Name and Address Organization Details Recorded Time 56875 adhesive tape environme nt,medica tion Not available Not available Not available 04/06/2017 39529 UNK Not Available Not Available Not Available 27185 morphine medicatio n Not available Not available Not available 04/06/2017 7052 RxNorm Not Available Not Available Not Available Medications Not known to be on any medication Vitals Date Recorded Body height Body mass index (BMI) Body weight Provider Name and Address Organization Details Last Updated DateTime 04/06/2017 157.48 cm 22.7 kg/m2 85834.45 g Asha Queen [place] [facility] 04/06/2017 11:39:55 Social History Question Answer Notes LastModified by Organizat ion Details LastModified Time Tobacco Smoking Status Former Smoker Asha Queen null, [place] - [facility] 04/06/2017 11:40:37 What Is Your Level Of Alcohol Consumption? Occasional Information not available 04/06/2017 Quit Smoking How Many Years Ago? 7 Information not available 04/06/2017 Before Quit, How Many Ppd? .20 Information not available 04/06/2017 Size Of Shoes 6.5 Information not available 04/06/2017 What Was The Date Of Your Most Recent Tobacco Screening? 04/06/2017 Information not available 03/08/2019 Sex: Unknown Functional Status Question Answer Note LastModified by Organization D etails LastModified Time What is your exercise level? Heavy Information not available 04/06/2017 Mental Status None recorded. Family History Relationship Description Onset Age of this Age Resolved Age Notes LastModified by Organization Details LastModified Time Father No current problems or disability Not available 04/06 11:40:28 Mother No current problems or disability Not available 04/06 11:40:28 Medical History Condition Response Tuberculosis or TB N Heart Problems N Ulcers on Legs or Feet N HIV or AIDS N Coronary Artery Disease N Gout N Seizure Disorder N High Blood Pressure N Clot in Lung or Pulmonary Embolism N Menopause N Lung Condition N Phlebitis or Venous Blood Clot N Migraines N Depression N Pacemaker N Anemia N Back Pain N Neurologic Disease N Sciatica N Heart Attack (IA) N Urinary Tract Infections N Anxiety Disorder N Diabetes N Bleeding Disorder N Arthritis N Abuse of Alcohol or Drugs N Back injury N Ear Problems N Cancer N Eye Problems N Stroke N Dementia N Stomach Problems N Peripheral Vascular Disease N Sinus Conditions N High Cholesterol N Thyroid Disorder N Broken Bone N Hepatitis N Liver Disease N Heart Disease N Rheumatoid Arthritis N Rash N Osteoporosis N Kidney Disease N Gynecological HistoryNo gynecological history recorded. 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 Radiograph s were reviewed and discussed with the patient. The painful foot condition of a neuroma, a pinched nerve between the metatarsal s, was discussed with the patient. The patient was given conservati ve, medical and surgical treatment options.Of fered patient diagnostic cortisone injection. Patient agreed and provided verbal consent.Al l of {{his her* }} questions were answered. Patient is to call if she has increased pain. Patient to RTC in 1 month. Pain in right foot [id number] 03660 M79.671 Health Concerns Section Related Observation LastModified by Organization Detai ls LastModified Time None Recorded Concern Status LastModified by Organization Details LastModified Time None Recorded Advance Directives Directive None Recorded Payers Encounter Date Sequence Insurance Name Policy Number Policy Kang Covered Member ID Kang Member ID Guarantor Name 04/06/2017 1 [facility] [id number] Samantha December [id number] Samantha December Notes Date Note Type Note Provider Name and Address Organization Details Recorded Time 7 text/html Foot Pain--Reported bypatient.Location:right ball of the foot at Metatarsophalangeal Joint Quality:aching; occurs: constantly; worsening Severity:moderate Duration:2 weeks Timing:all day long Alleviating Factors:ice; elevation Aggravating Factors:walking; weightbearing; pressure Associated Symptoms:denies weakness, limping, tingling, swelling, or color changes; bruising Previous Surgery:none Prior Imaging:none Previous Treatments:noneNotes:nika oneill denies any trauma to the area SAMMY Talbot [facility] 04/06/2017 11:57:43 OBGyn Episode No OBEpisode recorded.
--- OUTSIDE RECORDS SUMMARY | 2024-12-08 00:33 | XMS_ITS | Clinical Summary ---
Author Organization [facility] Medical Office Building 1 Address [address] [place] [address] Care Team Providers Care Hospital Coordinator Name Role Phone Denton Leonardo MD Primary Care Provider [phone] Allergies No known active allergies Medications No known medications Active Problems No known active problems Encounters Date Type Department Care Team Description 10/13/2024 1:30 PM TRANSPORTATION DESIGN ENGINEER - 10/13/2024 11:59 PM TRANSPORTATION DESIGN ENGINEER Hospital Encounter [address] [place] [address] Right foot pain Discharge Disposition: Discharge to home or self care 10/13/2024 1:30 PM TRANSPORTATION DESIGN ENGINEER Office Visit [facility] Orthopaedic Surgery [address] [place], [place] [address]y Medical Office Building 1 [address] [place] [address] Gasper Victoria NP Right foot pain (Primary Dx); Left foot pain from Last 3 Months Social History Tobacco Use Types Packs/Day Years Used Date Smoking Tobacco: Unknown Tobacco Cessation:Counseling Given: Not Answered Comments Unknown Sex and Gender Information Value Date Recorded Sex Assigned at Not on file Legal Sex Female 6:30 PM TRANSPORTATION DESIGN ENGINEER Gender Identity Not on file Sexual Orientation Not on file Obstetrics History Plan of Treatment Health Maintenance Due Date Last Done Comments Breast Cancer Screening-Mammogram 1979 Cervical Cancer Screening 1979 Colon Cancer Screening-Colonoscopy 1979 Depression Screening 1979 Hepatitis C Screening 1979 Hepatitis B Screening 1997 Regular Well Visit/Exam 18-64 1997 Covid-19 Vaccine (2023-2 5 season) 2024 12/22/2020, 11/09/2020 Influenza Vaccine (#1) 2024 DTaP/Tdap/Td Vaccine (2 - Td or Tdap) 10/15/2031 10/14/2021 HPV Vaccines Aged Out No longer eligi ble based on patient's age to complete this topic Pneumococcal vaccine <65 Aged Out No longer eligible based on patient's age to complete this topic Procedures Procedure Name Priority Date/Time Associated Diagnosis Comments XR FOOT RIGHT 3 OR MORE VIEWS Schedule Routine, Read Routine (OP Routine) 10/13/2024 1:36 PM TRANSPORTATION DESIGN ENGINEER Right foot pain from Last 3 Months Results * XR Foot Right 3 or More Views (10/13/2024 1:36 PM TRANSPORTATION DESIGN ENGINEER) Anatomical Region Laterality Modality Lower Extremities, Foot Right Digital Radiography 10/14/2024 9:01 AM TRANSPORTATION DESIGN ENGINEER Impressions 10/14/2024 9:01 AM TRANSPORTATION DESIGN ENGINEER 1. Small bony density adjacent to the [...] Muna Segovia M.D. Narrative 10/14/2024 9:01 AM TRANSPORTATION DESIGN ENGINEER EXAMINATION: XR FOOT RIGHT 3 OR MORE [...] signed by: Muna Segovia M.D. Gasper Victoria FISH FARM LABORER IMG XR PROCEDURES Final Re sult from Last 3 Months Insurance NEXUS NEXUS Care Teams Hospital Coordinator Relationship Specialty Start Date End Date Denton Leonardo MD [address] [place] [id number] PCP - General Surgery 11/07/21
--- OUTSIDE RECORDS SUMMARY | 2024-12-08 00:33 | XMS_ITS | Clinical Summary ---
Author Organization [facility] Address [address] [place] [address] Care Team Providers Care Award Machine Operator Name Role Phone Meri Cummings MD Primary Care Provider Unavailab le Social History Tobacco Use Types Packs/Day Years Used Date Smoking Tobacco: Never Assessed Comments Unknown Sex and Gender Information Value Date Recorded Sex Assigned at Not on file Legal Sex Female 7:19 PM CDT Gender Identity Not on file Sexual Orientation Not on file Last Filed Vital Signs Vital Sign Reading Time Taken Comments Blood Pressure 95/63 01/11/2014 3:39 PM CDT Pulse 68 01/11/2014 3:39 PM CDT Temperature - - Respiratory Rate - - Oxygen Saturation - - Inhaled Oxygen Concentration - - Weight 57.2 kg (126 lb) 01/11/2014 3:39 PM CDT Height 165.1 cm (5' 5 ) 01/11/2014 3:39 PM CDT Body Mass Index 20.97 01/11/2014 3:39 PM CDT Plan of Treatment Health Maintenance Due Date Last Done Comments Cervical Cancer Screening Pa p Smear (Age 30 to 64) Every 3 Years 1979 Colorectal Cancer Screening Colonoscopy (10 Years) 1979 Annual Physical 1982 Hepatitis C 1997 Hepatitis B Vaccines (1 of 3 - 19+ 3-dose series) 1998 Cervical Cancer Screening Pa p with HPV Testing (Age 30 to 64) Every 5 Years 2009 Cervical Cancer Screening with HPV 2009 DTaP, Tdap and Td Vaccines ( 1 - Tdap) 07/17/2010 07/16/2010 Mammogram Screening 2019 COVID-19 Vaccine (2023-2 5 season) 2024 HPV Vaccines Aged Out No longer eligi ble based on patient's age to complete this topic Meningococcal B Vaccine Aged Out No l onger eligible based on patient's age to complete this topic Meningococcal Vaccine Aged Out No mounika marta eligible based on patient's age to complete this topic Pneumococcal Vaccine: Pediat rics (0 to 5 Years) and At-Risk Patients (6 to 49 Years) Aged Out No longer eligi ble based on patient's age to complete this topic RSV Immunizations Under 20 Months Aged Out No longer eligible based on patient's age to complete this topic Care Teams Award Machine Operator Relationship Specialty Start Date End Date Meri Cummings MD PCP - General 06/13/12
[2024-12-08 11:15] VITALS: BP 97/75; PULSE 80; RESP 16; TEMP 36.4; O2SAT 100; BMI 23.4
[2024-12-08] MEDS: LACTATED RINGERS 1,000 ML 150 ML IV CONT (11:31)
--- NOTE | 2024-12-08 11:37 | P.PNAN_ITS ---
Anes - Initial Pre Proc Eval Procedure: Operation Date: 12/08/24 12:30 Proposed Procedures p Screening Colonoscopy - Brady Ro MD Date/Time: 12/08/24 11:37 Surgeon: Brady Ro MD Pre Op Diagnosis: Screening Patient Data Age: 44 Gender: F Height: 1.57 m Weight: 58.2 kg Last Vital Signs Temp 97.6 F 12/08/24 11:15 Pulse 80 12/08/24 11:15 Resp 16 12/08/24 11:15 BP 97/75 L 12/08/24 11:15 Pulse Ox 100 12/08/24 11:15 O2 Del Method Room Air 12/08/24 11:15 Allergies Allergy/AdvReac Type Severity Reaction Status Date / Time hydromorphone (From Dilaudid) AdvReac Mild Rash Verified 12/08/24 11:20 Home Medications ?Medication ?Instructions ?Recorded ?Confirmed ?Type No Home Medications 11/28/24 11/28/24 History Patient hx anesthesia problems: none Family hx anesthesia problems: none Results Review: All pre-operative results and documents have been reviewed as part of the pre- operative evaluation. PMF Social History Social History Living arrangements: with family Spiritual care concerns: No Anes - Eval Final PreProcedure Day of Procedure 12/08/24 11:37 Patient weight: normal Heart: regular rate and rhythm Lungs: clear to auscultation Airway: Mallampati scale class II Neurological: alert and oriented Last oral intake: >/= 8 hours ASA classification: I Emergent: no Anesthetic plan: proceed Anesthesia type and monitoring: general GIVS and standard monitoring Results Review: All pre-operative results and documents have been reviewed as part of the pre- operative evaluation. Informed Consent: The patient's anesthetic plan and its attendant risks and benefits were discussed with the patient/family/POA. Questions were solicited and answers provided to the satisfaction of the patient/family/POA.
[2024-12-08 11:38] LABS: BEDSIDEPREGUCG Negative (Negative)
--- NOTE | 2024-12-08 11:53 | PM.IMHP ---
H&P: HPI History of Present Illness Date/Time: 12/08/24 11:53 Chief Complaint: Screening colonoscopy Narrative: This is the patient's first colonoscopy. There are no GI symptoms and there is no family history of colorectal cancer. Review of Systems Review of Systems: All systems reviewed & are unremarkable except as noted in HPI and below [facility] Social History Social History Living arrangements: with family Spiritual care concerns: No Meds Home Medications and Allergies Home Medications ?Medication ?Instructions ?Recorded ?Confirmed ?Type No Home Medications 11/28/24 11/28/24 History Allergies Allergy/AdvReac Type Severity Reaction Status Date / Time hydromorphone (From Dilaudid) AdvReac Mild Rash Verified 12/08/24 11:20 Vital Signs Vital Signs - 24 hr 12/08/24 11:15 Temperature 97.6 F Pulse Rate 80 Respiratory Rate 16 Blood Pressure 97/75 L Pulse Oximetry 100 Oxygen Delivery Room Air Exam Const: General: cooperative and healthy appearing Resp: Effort & Inspection: normal respiratory effort and able to speak in complete sentences Auscultation: clear to auscultation bilaterally Cardio: Rate: regular rate Rhythm: regular rhythm GI: Inspection: normal to inspection GI Palp: No No hepatosplenomegaly present Auscultation: normal bowel sounds Rectal Exam: deferred Skin: General skin exam: normal color Psych: Appearance: grossly normal Mental Status: mental status grossly normal Assessment and Plan Assessment and plan (1) Encounter for screening colonoscopy: Code(s): Z12.11 - Encounter for screening for malignant neoplasm of colon Status: Acute Assessment and Plan: The patient is deemed a good candidate for the procedure. Consent signed. Will proceed.
[2024-12-08 12:15] VITALS: BP 87/52; PULSE 86; RESP 17; O2SAT 97
[2024-12-08 12:25] VITALS: BP 85/52; PULSE 73; RESP 16; O2SAT 97
[2024-12-08 12:35] VITALS: BP 89/59; PULSE 76; RESP 33; O2SAT 99
== END 2024-12-08 12:48 | disposition home or self-care (01) ==
PROVIDERS: Anesthesiology; PCP Advanced Practice Midwife; Visit Provider Internal Medicine Gastroenterology
PROC: 0DJD8ZZ Inspection of Lower Intestinal Tract, Via Natural or Artificial Opening Endoscopic (ICD-10-PCS; CPT 45378; principal; 2024-12-08 12:30)
DX: Z12.11 Encounter for screening for malignant neoplasm of colon (principal); K64.8 Other hemorrhoids
CPT/HCPCS: 45378; J2003; J2704; J7120

== ENCOUNTER 2024-12-30 11:47 | Outpatient (CLI) | payer OTHER, SELFPAY ==
--- NOTE | ~2024-12-30 | US_ITS ---
Limited Abdominal Sonogram: Real-time sonographic imaging of the right upper quadrant was performed. Clinical History: Abdominal pain Findings: The liver appears normal with no evidence of mass lesion or bile duct dilatation. Main por hitesh vein demonstrates normal direction of flow. The gallbladder is well distended, and appears normal with no evidence of gallstone or wall thickening. The common bile duct measures 3 mm. The visualize d pancreas, aorta, and IVC are unremarkable. Impression: No significant abnormality seen. Reviewed, dictated and finalized at location . Impression: No significant abnormality seen.
== END 2024-12-30 11:48 | disposition home or self-care (01) ==
LOC: MICIMG 11:47
PROVIDERS: PCP Nurse Practitioner Family; Visit Provider Nurse Practitioner Family
DX: R10.11 Right upper quadrant pain (principal)
CPT/HCPCS: 76705

== ENCOUNTER 2025-03-19 01:17 | Day surgery (SDC) | payer OTHER, SELFPAY ==
[2025-03-07 10:52] VITALS: BMI 22.8
--- OUTSIDE RECORDS SUMMARY | 2025-03-19 01:19 | XMS_ITS | Clinical Summary ---
[facility] Organization [facility] Address [facility] [place] [address] Care Team Providers Care [employer] Name Role Phone Meri Cummings MD Primary [...] 3:39 PM CDT Height 165.1 cm (5' 5) 01/11/2014 3:39 PM CDT Body Mass Index 20.97 01/11/2014 3:39 PM CDT Plan of Treatment Health Maintenance Due Date Last Done Comments Cervical Cancer Screening Pa p Smear (Age 30 to 64) Every 3 Years 1979 Colorectal Cancer Screening Colonoscopy (10 Years) 1979 Annual Physical 1982 Hepatitis C 1997 Hepatitis B Vaccines (1 of 3 - 19+ 3-dose series) 1998 HPV Vaccines (1 - 3-dose SCD M series) 2006 Cervical Cancer Screening Pa p with HPV Testing (Age 30 to 64) Every 5 Years 2009 Cervical Cancer Screening with HPV 2009 DTaP, Tdap and Td Vaccines ( 1 - Tdap) 07/17/2010 07/16/2010 Mammogram Screening 2019 COVID-19 Vaccine (2023-2 5 season) 2024 Meningococcal B Vaccine Aged Out No l [...] age to complete this topic Care Teams [employer] Relationship Specialty Start Date End Date Meri Cummings MD PCP - General 06/13/12
[2025-03-19 12:48] VITALS: BP 96/70; PULSE 78; RESP 19; TEMP 36.6; O2SAT 100; BMI 23.1
[2025-03-19 12:52] LABS: BEDSIDEPREGUCG Negative (Negative)
[2025-03-19] MEDS: LACTATED RINGERS 1,000 ML 150 ML IV CONT (12:54)
--- NOTE | 2025-03-19 12:54 | WPDANESEPPF ---
Anes - Initial Pre Proc Eval Procedure: Operation Date: 03/19/25 14:00 Proposed Procedures p Esophagogastroduodenoscopy - Brady Ro MD Date/Time: 03/19/25 12:54 Surgeon: Brady Ro MD Pre Op Diagnosis: Gastro-esophageal reflux disease without esophagit Patient Data Age: 44 Gender: F Height: 1.57 m Weight: 57.5 kg Last Vital Signs Temp 36.6 C 03/19/25 12:48 Pulse 78 03/19/25 12:48 Resp 19 03/19/25 12:48 BP 96/70 L 03/19/25 12:48 Pulse Ox 100 03/19/25 12:48 O2 Del Method Room Air 03/19/25 12:48 Allergies Allergy/AdvReac Type Severity Reaction Status Date / Time hydromorphone (From Dilaudid) AdvReac Mild Rash Verified 03/19/25 12:47 Home Medications ?Medication ?Instructions ?Recorded ?Confirmed ?Type famotidine 40 mg tablet 40 mg PO BID #60 tabs 01/12/25 03/19/25 Rx multivitamin (Daily Multi-Vitamin 1 tablet PO DAILY 03/07/25 03/19/25 History tablet) Laboratory Tests 03/19/25 12:48 POC Urine HCG, Qual Negative (Negative) Patient hx anesthesia problems: none Family hx anesthesia problems: none Results Review: All pre-operative results and documents have been reviewed as part of the pre-operative evaluation. [facility] Past Medical History Medical History (Updated 03/19/25 @ 13:19 by Brady Ro MD) Acid reflux Social History Social History Smoking status: Never smoker Alcohol intake: never Substance use: never Substance use type: does not use Living arrangements: with family Spiritual care concerns: No Anes - Eval Final PreProcedure Day of Procedure 03/19/25 12:54 Patient weight: normal Heart: regular rate and rhythm Lungs: clear to auscultation and normal air movement Airway: Mallampati scale class II Neurological: alert and oriented Last oral intake: >/= 8 hours ASA classification: II Emergent: no Anesthetic plan: proceed Anesthesia type and monitoring: general GIVS and standard monitoring Results Review: All pre-operative results and documents have been reviewed as part of the pre-operative evaluation. Informed Consent: The patient's anesthetic plan and its attendant risks and benefits were discussed with the patient/family/POA. Questions were solicited and answers provided to the satisfaction of the patient/family/POA.
[2025-03-19] MEDS: SIMETHICONE ORAL SUSPENSION 20 MG/0.3 ML 30 ML BOTTLE 1.8 ML PO (12:55)
--- NOTE | 2025-03-19 13:18 | P.HP_ITS ---
H&P: HPI History of Present Illness Date/Time: 03/19/25 13:18 Chief Complaint: GERD Narrative: the patient has a diagnosis of GERD, intolerant to Omeprazole (headache) subsequently switched to famotidine 80 mg q.d.. She is referred for EGD. Review of Systems Review of Systems: All systems reviewed & are unremarkable except as noted in HPI and below PMFSH Past Medical History Medical History (Updated 03/19/25 @ 13:19 by Brady Ro MD) Acid reflux Social History Social History Smoking status: Never smoker Alcohol intake: never Substance use: never Substance use type: does not use Living arrangements: with family Spiritual care concerns: No Meds Home Medications and Allergies Home Medications ?Medication ?Instructions ?Recorded ?Confirmed ?Type famotidine 40 mg tablet 40 mg PO BID #60 tabs 01/12/25 03/19/25 Rx multivitamin (Daily Multi-Vitamin 1 tablet PO DAILY 03/07/25 03/19/25 History tablet) Allergies Allergy/AdvReac Type Severity Reaction Status Date / Time hydromorphone (From Dilaudid) AdvReac Mild Rash Verified 03/19/25 12:47 Vital Signs Vital Signs - 24 hr 03/19/25 12:48 Temperature 97.9 F Pulse Rate 78 Respiratory Rate 19 Blood Pressure 96/70 L Pulse Oximetry 100 Oxygen Delivery Room Air Exam Const: General: cooperative and healthy appearing Resp: Effort & Inspection: normal respiratory effort and able to speak in com plete sentences Auscultation: clear to auscultation bilaterally Cardio: Rate: regular rate Rhythm: regular rhythm GI: Inspection: normal to inspection GI Palp: No No hepatosplenomegaly present Auscultation: normal bowel sounds Rectal Exam: deferred Skin: General skin exam: normal color Psych: Appearance: grossly normal Mental Status: mental status grossly normal Assessment and Plan Assessment and plan (1) GERD (gastroesophageal reflux disease): Code(s): K21.9 - Gastro-esophageal reflux disease without esophagitis Status: Acute Assessment and Plan: The patient is deemed a good candidate for the procedure. Consent signed. Will proceed.
--- NOTE | 2025-03-19 13:37 | S_PTH ---
PATIENT: Samantah Garcia LOC: [facility] U#:[id number] AGE/SX: 44/F ROOM: RE03/19/[address]: Brady Ro MD : 1980 BED: DIS: 03/19/2025 SPEC #: [id number] RECD: 03/19/25 14:43 STATUS: KAYLYN REQ #: [id number] EDGAR: 03/19/25 13:[address]: Brady Ro DEPT: [facility] Surgical RECD BY: Mckenna Galvan ENTERED: 03/19/25 14:44 SP TYPE: Surgical OTHR DR: PHOTO JOURNALIST PHYSICIAN Tissues: A - Gastric Biopsy B - Gastric Biopsy C - Esophageal Biopsy Procedures: Hematoxylin and Eosin Stain Gross and Microscopic Level 4
[2025-03-19 13:45] VITALS: BP 119/75; PULSE 60; RESP 23; O2SAT 95
[2025-03-19 13:55] VITALS: BP 97/64; PULSE 62; RESP 19; O2SAT 96
[2025-03-19 14:05] VITALS: BP 84/50; PULSE 74; RESP 18; O2SAT 98
== END 2025-03-19 14:18 | disposition home or self-care (01) ==
PROVIDERS: Anesthesiology; Referring Provider Nurse Practitioner Family; Visit Provider Internal Medicine Gastroenterology
PROC: 0DJ08ZZ Inspection of Upper Intestinal Tract, Via Natural or Artificial Opening Endoscopic (ICD-10-PCS; CPT 43239; principal; 2025-03-19 14:00)
DX: K21.9 Gastro-esophageal reflux disease without esophagitis (principal); K29.50 Unspecified chronic gastritis without bleeding
CPT/HCPCS: 43239; 88305; J2003; J2371; J2704; J7120